=== PATIENT | male | born 2000 | race Caucasian/White ===

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

== ENCOUNTER 2021-06-26 12:40 | Emergency (ER) | payer OTHER ==
[~2021-06-26] VITALS: Ht 193 cm; Wt 81.7 kg
[2021-06-26] MEDS ORDERED: CLEOCIN HCL300 MG PO (17:44)
== END 2021-06-26 18:11 | disposition home or self-care (01) ==
LOC: ED 12:40
DX: L03.115 Cellulitis of right lower limb (principal); F17.200 Nicotine dependence, unspecified, uncomplicated
CPT/HCPCS: 73560; 80053; 85025; 85651; 99283-25